=== PATIENT | female | born 1985 | race Caucasian/White ===

== ENCOUNTER 2016-09-06 09:42 | Emergency (ER) | payer OTHER ==
--- NOTE | 2016-09-06 10:12 | EDPHY ---
HPI/HX/ROS/PE/MDM Narrative: CHIEF COMPLAINT: Fever, persistent illness. HISTORY OF PRESENT ILLNESS: This patient is a 30 year old female arriving with her father complaining of fever, generalized achiness, nausea, pelvic pain, and dysuria onset three days ago. She was treated for UTI two weeks ago, given IV antibiotics and morphine. Treated with Keflex initially, then switched to Macrobid, which she completed yesterday. Yesterday morning, Friday, she woke up feeling like she could not breathe, and as though she were underwater, dizziness, headache, chest pain, fatigue, full body aches, and fever of 101-102 degrees Fahrenheit. She states she has taken Tylenol and Advil for fever and headache. She endorses increased difficulty breathing while supine. She describes pain in her right flank like a "knife between my ribs in the back on the left side" with inspiration. She endorses continued dysuria and urinary urgency. She states she has developed a yeast infection as well. She denies vaginal bleeding or history of pelvic inflammatory disease or sexually transmitted infections. [place] and dogs that interact with prairie dogs , and she is concerned regarding plague. She states there have been three reported cases of plague in her area. She has not noted flea or mosquito bites. No chills, palpations, vomiting, lightheadedness. REVIEW OF SYSTEMS: Aside from elements discussed in the HPI, a comprehensive 10-point review of systems was reviewed and is negative. PAST MEDICAL HISTORY: Paragard IUD. History of ovarian cyst. 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 Lives in [place]. Nonsmoker, occasional alcohol use. VITAL SIGNS: Reviewed by me GENERAL: Tearful. Well-developed, well-nourished, resting comfortably in no respiratory distress. HEENT: Atraumatic. Eyes: No icterus, no injection. Mouth: moist mucous membranes. No erythema or lesions. Neck: supple with no adenopathy. Supple. No meningismus. LUNGS: Clear to auscultation bilaterally, no wheezes, rhonchi or rales. CARDIAC: Regular rate and rhythm, no rubs, murmurs or gallops. ABDOMEN: Soft, mild tenderness the lower abdominal quadrants bilaterally. Nondistended, bowel sounds normal. BACK: Left posterior lower ribs painful with inspiration. No CVA tenderness. EXTREMITIES: No trauma. No edema. Range of motion is normal throughout. NEURO: Alert and oriented, grossly nonfocal. SKIN: Warm and dry, no rash. PSYCHIATRIC: Normal mentation, no agitation. Portions of this note were transcribed by a medical associate. I personally performed a history, physical exam, medical decision making, and confirmed accuracy of information the transcribed note. ED Course: This patient is a 30 year old female presenting with three day history fever, generalized achiness, nausea, pelvic pain, and dysuria. Plan for labs including CBC, BMP, liver, lipase, BHCG, UA, PTPTT, D-Dimer, mono screen, respiratory pathogen PCR. Plan for imaging including pelvic US, CTA, chest x-ray. Plan to administer 1000mg PO Acetaminophen, 1L IV NS, 25mg IV Benadryl, 4mg IV Zofran, 1mg IV Dilaudid for symptom relief. UA unremarkable. WBC 13. D-dimer slightly elevated. Chest x-ray shows possible bronchitis. CTA negative for PE. Pelvic US unremarkable, no acute processes noted. 12:[address] Worrell, infectious disease specialist. Dr. Worrell will come to consult. Dr. Worrell at bedside. Patient would like to be discharged home as she has two weddings to attend this weekend. Her father is a physician and is comfortable monitoring her condition. Strict return precautions discussed. Prescriptions for doxycycline and Diflucan given. Contact information for ED and Dr. Worrell given in case of further concerns. MDM: This is a 30 year female who had a urinary tract infection approximately 2 weeks ago. She had treatment with 2 antibiotics and seemed to be somewhat improved. However 3 days ago the patient again developed significant fever, ongoing dysuria, flank pain, back pain, pelvic pain, cough, shortness of breath. There is some concern regarding a zoonotic infection. Evaluation emergency department has been largely unremarkable. Patient does not meet criteria for severe sepsis. Chest x-ray is negative for any pneumonia. CT scan is negative for any pulmonary embolism. Pelvic ultrasound demonstrates no tubo-ovarian abscess or follopian tube abnormalities. Patient was seen by infectious disease. Respiratory panel is negative. Patient will be placed on doxycycline as treatment for potential plague. Titers for EBV were also sent. Differential diagnosis for fever in adults was considered including but not limited to pneumonia, urinary tract infection, viral syndrome, and influenza. - Data Points Imaging Results: Chest x-ray: Impression: Mild bronchitis. No other findings for acute cardiopulmonary abnormality. Dictated By: Ludwin Madera MD Chest CT for pulmonary embolism: Impression: 1. No pulmonary embolism. Clear lungs. 2. Results are called to Dr. Correa, at 12:33 PM Dictated By: Mariajose Richmond MD Pelvic ultrasound: Impression: 2 cm simple-appearing cyst in the left ovary which collapses by the transvaginal examination. IUD has good placement in the endometrial cavity. Otherwise normal pelvic ultrasound. Results called to Dr. Juanita Correa. Laboratory Results: Laboratory Results 09/06/16 10:35 09/06/16 10:35 Medications Given: Discontinued Medications Acetaminophen (Tylenol) 1,000 mg PO EDNOW ONE Stop: 09/06/16 11:49 Last Admin: 09/06/16 11:49 Dose: 1,000 mg Albuterol (Proventil Neb) 3 ml IH EDNOW ONE Stop: 09/06/16 13:41 Last Admin: 09/06/16 13:57 Dose: 3 ml Diphenhydramine HCl (Benadryl Injection) 25 mg IVP EDNOW ONE Stop: 09/06/16 11:49 Last Admin: 09/06/16 11:49 Dose: 25 mg Doxycycline Hyclate (Doxycycline Hyclate) 100 mg PO EDNOW ONE PRN Reason: Protocol Stop: 09/06/16 13:41 Last Admin: 09/06/16 13:57 Dose: 100 mg Hydromorphone HCl (Dilaudid) 1 mg IVP EDNOW ONE Stop: 09/06/16 12:08 Last Admin: 09/06/16 12:29 Dose: 1 mg Sodium Chloride (Ns) 1,000 mls @ 0 mls/hr IV ONCE ONE; Wide Open PRN Reason: Protocol Stop: 09/06/16 10:36 Last Admin: 09/06/16 10:56 Dose: 1,000 mls Sodium Chloride (Ns) 1,000 mls @ 0 mls/hr IV ONCE ONE; Wide Open PRN Reason: Protocol Stop: 09/06/16 12:07 Last Admin: 09/06/16 12:30 Dose: 1,000 mls Ketorolac Tromethamine (Toradol) 15 mg IVP ONCE ONE Stop: 09/06/16 10:36 Last Admin: 09/06/16 10:55 Dose: 15 mg Ondansetron HCl (Zofran) 4 mg IVP EDNOW ONE Stop: 09/06/16 10:36 Last Admin: 09/06/16 10:56 Dose: 4 mg Microbiology Results: MICROBIOLOGY 09/06/16 11:11 Blood Blood Culture - Final 09/06/16 10:35 Blood Blood Culture - Final General Time Seen by Provider: 09/06/16 09:50 Initial Vital Signs: Initial Vital Signs Temperature (C) 38.2 C 09/06/16 09:43 Heart Rate 90 09/06/16 09:43 Respiratory Rate 18 09/06/16 09:43 Blood Pressure 113/81 H 09/06/16 09:43 O2 Sat (%) 94 09/06/16 09:43 O2 Delivery Mode Room Air O2 (L/minute) 2 Allergies/Adverse Reactions: No Known Allergies Allergy (Unverified 09/06/16 09:46) Home Medications: Medication Instructions Recorded Albuterol Hfa Anes Only [Proair 2 puffs IH QID #1 mdi 09/06/16 Hfa Icu (*)] Doxycycline Hyclate 100 mg PO BID #14 tablet 09/06/16 Fluconazole [Diflucan] 200 mg PO ONCE #2 tablet 09/06/16 Departure - Departure Disposition: Home, Routine, Self-Care Clinical Impression: Fever Qualifiers: Fever type: unspecified Qualified Code(s): R50.9 - Fever, unspecified Condition: Good Instructions: Fever in Adults (ED) Additional Instructions: Please take antibiotic as directed. Doxycycline 100 mg by mouth 2 times a day for a week. Continue to take Tylenol and ibuprofen to control fever as well as body aches. Pediatric Fever & Pain Control: For fever/pain control we recommend: Acetaminophen (Tylenol) 1000 mg every 4 to 6 hours as needed Ibuprofen (Advil, Motrin) 600 mg every 6 to 8 hours as needed. *Acetaminophen and Ibuprofen may be given in alternating doses or at the same time for high fever. (NOTE TIME DIFFERENCES) NEVER GIVE ASPIRIN TO AN INFANT OR CHILD. You may obtain results of the pending cultures by calling the emergency department. [phone] Worrell over the weekend as needed. Cell phone is [phone] Please drink plenty of fluid. Please take the fluconazole to treat the yeast infection after finishing your antibiotics. Referrals: [facility] [Other] - As per Instructions Yessy Worrell MD [Medical Doctor] - As per Instructions Prescriptions: Albuterol Hfa Anes Only [Proair Hfa Icu (*)] 2 puffs IH QID #1 mdi Doxycycline Hyclate 100 mg PO BID #14 tablet Fluconazole [Diflucan] 200 mg PO ONCE #2 tablet Report Scribed for: Juanita Correa Report Scribed by: Susie Naidu Date of Report: 09/06/16 Time of Report: 10:13
[2016-09-06] MEDS ORDERED: NS 1,000 ML IV ONE ×2 (10:35→12:06)
[2016-09-06] MEDS ORDERED: ONDANSETRON 4 MG/2 ML VIAL IVP ONE (10:35)
[2016-09-06] MEDS ORDERED: KETOROLAC 15 MG/1 ML SDV IVP ONE (10:35)
[2016-09-06] MEDS ORDERED: ACETAMINOPHEN 500 MG TAB ONE (10:37)
[2016-09-06 10:46] LABS: % IMMATURE GRANULYOCYTES 0.4 % (0.0-1.1); ABSOLUTE IMMATURE GRANULOCYTES 0.06 10^3/uL (0.00-0.10); ADD DIFF? NO; ADD MORPH? NO; ADD SCAN? NO; ATYPICAL LYMPHOCYTE FLAG 0 (0-99); FRAGMENT RBC FLAG 0 (0-99); HEMATOCRIT 43.5 % (38.0-47.0); HEMOGLOBIN 14.8 g/dL (12.6-16.3); LEFT SHIFT FLG 10 (0-99); LIPEMIA HEMOLYSIS FLAG 90 (0-99); MEAN CELL HEMOGLOBIN 32.5 pg (27.9-34.1); MEAN CELL VOLUME 95.6 fL (81.5-99.8); MEAN PLATELET VOLUME 10.6 fL (8.7-11.7); PLATELET CLUMPS FLAG 10 (0-99); PLATELET COUNT 178 10^3/uL (150-400); RED BLOOD CELL COUNT 4.55 10^6/uL (4.18-5.33); RED CELL DISTRIBUTION WIDTH 12.8 % (11.5-15.2)
[2016-09-06 10:49] LABS: COLOR PALE YELLOW; LEUKOCYTE ESTERASE,URINE NEGATIVE (NEGATIVE); NITRITE,URINE NEGATIVE (NEGATIVE)
[2016-09-06] MEDS ORDERED: diphenhydrAMINE 50 MG CAP PO ONE (10:49)
[2016-09-06 11:01] LABS: MUCUS TRACE /lpf (NONE-1+)
[2016-09-06 11:12] LABS: ALANINE AMINOTRANSFERASE 22 IU/L (9-52); ALBUMIN 4.5 g/dL (3.5-5.0); ALKALINE PHOSPHATASE 68 IU/L (38-126); ANION GAP 14 mEq/L (8-16); ASPARTATE AMINOTRANSFERASE 21 IU/L (14-46); BILIRUBIN,TOTAL 0.9 mg/dL (0.1-1.4); BILIRUBIN-CONJUGATED 0.2 mg/dL (0.0-0.5); BILIRUBIN-UNCONJUGATED 0.7 mg/dL (0.0-1.1); CALCIUM 9.8 mg/dL (8.5-10.4); CARBON DIOXIDE 22 mEq/l (22-31); CHLORIDE 108 mEq/L (97-110); CREATININE 0.7 mg/dL (0.6-1.0); GLOMERULAR FILTRATION RATE > 60; GLUCOSE 79 mg/dL (70-100); POTASSIUM 4.3 mEq/L (3.5-5.2); SODIUM 144 mEq/L (134-144); TOTAL PROTEIN 7.5 g/dL (6.3-8.2)
[2016-09-06 11:32] LABS: INR 1.01 (0.83-1.16); PROTIME(PATIENT) 13.2 SEC (12.0-15.0)
[2016-09-06 11:33] LABS: APTT 27.2 SEC (23.0-38.0)
[2016-09-06] MEDS ORDERED: ACETAMINOPHEN 500 MG TAB PO ONE (11:48)
[2016-09-06] MEDS ORDERED: IOPAMIDOL (ISOVUE 370) 100 ML BTL IV ONE (12:00)
[2016-09-06] MEDS ORDERED: HYDROmorphONE/DILAUDID 1 MG/ML SYR IVP ONE (12:07)
[2016-09-06] MEDS ORDERED: DOXYCYCLINE HYCLATE 100 MG CAP/TAB PO ONE (13:40)
[2016-09-06] MEDS ORDERED: ALBUTEROL 3 ML DEYVIAL IH ONE (13:40)
[2016-09-06 14:15] VITALS: BP 114/76; PULSE 67; RESP 14; TEMP 98.7; O2SAT 94
--- NOTE | 2016-09-06 14:47 | GCON ---
[f rep st] CONSULTATION INFECTIOUS DISEASE CONSULTATION DATE OF CONSULTATION: 09/06/2016 REFERRING PHYSICIAN: Juanita Correa MD REASON FOR CONSULTATION: Fever. HISTORY OF PRESENT ILLNESS: A 30-year-old healthy woman who presents to the emergency room with 2-3 days of persistent fever to 102, malaise and body aches. In addition, she felt a prominent headache and muscle pain. This morning, she felt she had a temperature to 102 again and felt short of breath. Therefore, presented to the emergency room for further evaluation. Recently, the patient had dysuria several weeks ago. She was initially given Keflex, but converted to Macrobid approximately 1 week ago, finishing her antibiotic yesterday. She also endorses lightheadedness with standing. She also has left-sided chest pain in the lower left flank. She has some mild urgency, but generally urinary symptoms have completely resolved. No sore throat. She has some left eye discharge intermittently. No rash. She denies any specific ill contacts, but interestingly she is currently living in [place] where there are 3 reported cases of plague, and she [place] in [place] more [place] area where there are 3 dogs who regularly kill prairie dogs. The dogs are not sick. They have mice in the home. She also is very active, hiking extensively , and has also had significant contact with fresh water [place] and hot springs in the area. PAST SURGICAL HISTORY: Nasal septal reconstruction and Paragard IUD. 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 Nonsmoker. Occasional alcohol. She is partnered/she has a male partner whom she has not seen in 2 weeks. They have been together for 2-1/2 years. They do not use condoms. Her last international travel was [place] in June 2016. PAST MEDICAL HISTORY: She denies any history of STDs. Denies specific witnessed flea, tick or mosquito bites. FAMILY HISTORY: Reviewed and noncontributory. ALLERGIES: NKDA. MEDICATIONS: Finished Macrobid the day before yesterday. REVIEW OF SYSTEMS: As per HPI. PHYSICAL EXAMINATION: VITAL SIGNS: Blood pressure 113/81, heart rate 90 ( baseline heart rate in the 40s), respiratory rate 18, temperature 38.2. GENERAL : This is a young woman lying flat in bed, in no respiratory distress but looks uncomfortable. HEENT: Pupils are reactive bilaterally. No scleral icterus. No conjunctival injection. No discharge. Mouth showed moist mucous membranes. No tonsillar swelling. No erythema. No exudates. CHEST: Clear to auscultation bilaterally, without wheezes. CARDIOVASCULAR: Regular rate. No murmur. ABDOMEN: She had diffuse discomfort to palpation. No hepatosplenomegaly. Bowel sounds are present. BACK: No CVA tenderness. EXTREMITIES: No clubbing, cyanosis, or edema. NEUROLOGIC: She is alert and oriented x4, with normal motor. Able to ambulate without difficulty. SKIN: Without rash. LABORATORY: White count 13.3, hematocrit 43, platelets 178, 73% neutrophils, 12 % lymphocytes, 8% monocytes. Creatinine 0.7. AST 21, ALT 22. Beta HCG is negative. Urinalysis is negative. Blood cultures were collected and are pending. A nasal respiratory panel was negative. IMAGING: The patient underwent a CT chest with contrast to evaluate for PE, which was negative and no focal infiltrate was noted. She also had a pelvic and renal ultrasound, which showed some simple appearing cysts in her left ovary and IUD in good place. Otherwise normal. ASSESSMENT AND PLAN: This is a 30-year-old woman who is normally healthy, who presents with febrile illness with associated severe body aches, headaches, nasal congestion and some shortness of breath, without evidence of pneumonia or pulmonary embolism on exam. Further data demonstrates a neutrophilic leukocytosis, normal renal and liver function tests. Respiratory panel is negative. Could also consider primary EBV or CMV, but also with patient's exposure history could consider Yersinia pestis, Francisella tularensis, or leptospirosis. Due to patient's illness and potential zoonotic contacts, would lean toward empiric therapy while awaiting further data, such as blood cultures. Would recommend doxycycline 100 mg and follow up on lab tests. The differential diagnosis and planned treatment was discussed with the patient , her father and ER physician. Time was 65 minutes. Greater than 50% of the time was spent with education and counseling, discussion of differential diagnosis and planned treatment. The patient is to follow up as needed. Family was provided my contact information. Thank you for this consultation. Addendum: Follow-up phone call on 09/10/2016. Patient feels significantly better. Fever resolved with in 24 hours of visit in the emergency room. She still feels some malaise but improved. Reviewed labs which included negative blood cultures to date. EBV serologies are indeterminate for acute infection. CMV serologies were negative. Patient perception that antibiotics did provide significant improvement, will add on [place]mia titers. If positive would extend length of therapy of doxycycline. /[id number]/MODL MTDD
[2016-09-09 09:29] LABS: ANTI EBNA Positive (Negative); ANTI VCA/IgG Positive (Negative); ANTI VCA/IgM Positive (Negative)
[2016-09-09 13:57] LABS: CHLAMYDIA AMPLIFICATION GENPRB NEGATIVE (NEGATIVE)
== END 2016-09-06 14:13 | disposition home or self-care (01) ==
DX: R50.9 Fever, unspecified (principal); R42 Dizziness and giddiness
CPT/HCPCS: 86644-90; 86645-90; 86664-90; 86665-90; 86668-90; 96374; J1170; J1200; J1885; J2405; Q9967

== ENCOUNTER 2017-05-06 14:00 | Inpatient (IN) | payer OTHER ==
[2017-05-06] MEDS ORDERED: ONDANSETRON DISINTEGRATING 4 MG TAB ONE (14:18)
[2017-05-06] MEDS ORDERED: ONDANSETRON DISINTEGRATING 4 MG TAB PO ONE ×2 (14:19→14:28)
--- NOTE | 2017-05-06 14:23 | EDPHY ---
H & P Time Seen by Provider: 05/06/17 14:04 HPI/ROS: HPI Back injury. 31-year-old female by ambulance from [facility]. 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 She reports that Friday morning at 9:00 a.m. She was pushing a toboggan that was unloaded in front of a chair lift chair. While pushing this up a slight hill the chair from the chair left hit her from behind twisting her back awkwardly and knocking her to the ground. She has a previous history of an L4-L5 disc herniation. She complained of intense lower back pain to this region right after the event. She was taken to the emergency department in [place]. She is the daughter of our trauma surgeon Dr. Dakota Morales. She MRIs in the emergency department there. She was treated with narcotics, Toradol, IV steroids as well as a localized cortisone injection. Dr. Morales has spoken with Dr. Jermaine Pool of the spinal service. She was transferred here for surgical management of an L4/L5 disc herniation. MRI of the LS spine obtained at the [place] emergency department is significant for a large central/slightly rightward eccentric extrusion of L4-L5 causing marked compression of the thecal sac impingement on the proximal descending right L5 nerve route. ROS: Constitutional: No fever, no chills. No weakness. Eyes: No discharge. No changes in vision. ENT: No sore throat. No nasal congestion or rhinorrhea. Respiratory: No cough. No shortness of breath. Cardiac: No chest pain, no palpitations. Gastrointestinal: No abdominal pain, no vomiting, no diarrhea. Genitourinary: No hematuria. No dysuria or increased frequency with urination. Musculoskeletal: No back pain. No neck pain. No myalgias or arthralgias. Skin: No rashes. Neurological: No headache. No focal weakness or altered sensation. Past medical history: No significant past medical history. Non hormonal IUD. No medication allergies. Social history: Both parents are alive and well. Father is a former surgeon at [facility] and currently works at our hospital. 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 She is engaged to be . No history of substance abuse. Nonsmoker. Physical Exam: General Appearance: Alert, no distress. This patient is responding to questions appropriately and in full sentences. This patient appears well- hydrated and well-nourished. Head: Normocephalic atraumatic. Face: Facial bones are stable on palpation. Eyes: Pupils equal and round and reactive to light, no pallor or injection. No lid erythema or edema. ENT, Mouth: Mucous membranes moist. Dentition is intact. No malocclusion of the jaw. No tongue lacerations or abrasions. Pharynx is clear. The bilateral nasal canals are clear. No septal hematoma. Respiratory: There are no retractions, lungs are clear to auscultation with good air movement bilaterally. Chest wall is stable to AP and lateral palpation. Cardiovascular: Regular rate and rhythm. No murmur. Gastrointestinal: Abdomen is soft and nontender, no masses, bowel sounds normal. Neurological: Motor sensory function is intact except for a slight sensory deficit S1 dermatomal distribution right foot. Cranial nerves are normal. Cerebellar function intact. Skin: Warm and dry, no rashes. No lacerations, abrasions or contusions. Musculoskeletal: Neck is supple and nontender. The trachea is midline. No midline cervical, thoracic tenderness on palpation. She has midline lumbar tenderness at L4-L5 S1. No bony deformity or step-off noted to this area. No soft tissue edema, ecchymosis, warmth or erythema noted. She does have some vague tenderness over the medial aspect of the right SI joint. No flank tenderness on palpation. Extremities are symmetrical, full range of motion. All joints in the bilateral upper and bilateral lower extremities range without pain or impingement. No tenderness on palpation of the long bones in the bilateral upper and bilateral lower extremities. Psychiatric: No agitation. No depression. Database: EKG: Imaging: Procedures: Emergency department course: Her vital signs were reviewed. Medications and route included 30 mg of IV morphine, 1 mg total of IV Dilaudid given 0.5 mg doses, 5 mg of IV Valium given over a period of 4 hr during transport time. She also received Toradol and IV steroids yesterday in addition to narcotics for treatment at [facility]. 2:[address] Jermaine Pool. He is currently at the patient's bedside. Plan is to take the patient to the OR tomorrow morning at 7:15 a.m.. Patient is asking for pain medication. She remains quite sedated from the narcotic she was given EN route. IV Toradol will be given at Dr. Pool's discretion. Her neurologic condition has remained unchanged throughout her emergency department course. I spoke with her father Dakota Morales regarding her emergency department care as well as plan of management. He has been well briefed by myself and Dr. Pool. All of his questions were answered. The patient was admitted under the care of Dr. Pool in stable condition. Differential Diagnosis: The differential diagnosis on this patient includes but is not limited to L4/5 intervertebral disc herniation, right-sided sacroiliac strain. Traumatic brain injury, cervical spine injury, other significant traumatic injury unlikely. This represents a partial list of diagnoses considered. These considerations are based on history, physical exam, past history, reassessment and diagnostic testing. Smoking Status: Never smoked Constitutional: Initial Vital Signs Temperature (C) 36.7 C 05/06/17 14:23 Heart Rate 57 L 05/06/17 14:23 Respiratory Rate 18 05/06/17 14:23 Blood Pressure 113/75 05/06/17 14:23 O2 Sat (%) 97 05/06/17 14:23 O2 Delivery Mode Nasal Cannula O2 (L/minute) 97 Allergies/Adverse Reactions: No Known Allergies Allergy (Unverified 09/06/16 09:46) Home Medications: Medication Instructions Recorded Herbals/Supplements -Info Only 1 ea PO DAILY 05/06/17 Acetaminophen [Tylenol ES 500 mg 1,000 mg PO Q8HRS PRN tab 05/08/17 (*)] Benzocaine/Menthol 15/4 [Cepacol 1 ea PO PRN PRN lozenge 05/08/17 Lozenge] Gabapentin [Neurontin 300 MG (*)] 300 mg PO Q8HRS #90 cap 05/08/17 HYDROmorphone HCL [Dilaudid 2 mg 2 mg PO Q4HRS PRN tab 05/08/17 (*)] Methocarbamol [Robaxin 750 mg (*)] 750 mg PO QID PRN tab 05/08/17 Sennosides/Docusate Sodium 1 - 2 tab PO BID #30 tab 05/08/17 [Senokot-S] oxyCODONE IR [Oxycodone Ir (*)] 5 - 10 mg PO Q4HRS PRN tab 05/08/17 Medical Decision Making - Data Points Medications Given: Acetaminophen (Tylenol) 1,000 mg PO Q8HRS PRN PRN Reason: Pain, Mild/Fever, Can Take PO Stop: 11/02/17 16:49 Last Admin: 05/08/17 04:48 Dose: 1,000 mg Famotidine (Pepcid) 20 mg PO BID TEE Stop: 11/03/17 08:59 Last Admin: 05/08/17 09:15 Dose: 20 mg Gabapentin (Neurontin) 300 mg PO Q8HRS TEE Stop: 11/03/17 13:59 Last Admin: 05/08/17 05:35 Dose: 300 mg Hydromorphone HCl (Dilaudid Clay Maker) 0 mg IV PRN PRN; Protocol PRN Reason: Pain, Severe Unable to Take PO Stop: 05/16/17 16:45 Last Admin: 05/07/17 05:39 Dose: 6 mg Methocarbamol (Robaxin) 750 mg PO QID PRN PRN Reason: Spasms Stop: 11/03/17 07:12 Last Admin: 05/08/17 04:41 Dose: 750 mg Ondansetron HCl (Zofran) 4 mg IVP Q4HRS PRN PRN Reason: Nausea/Vomiting, Can't Take PO Stop: 11/02/17 16:45 Last Admin: 05/06/17 16:58 Dose: 4 mg Ondansetron HCl (Zofran Odt) 4 mg PO Q4HRS PRN PRN Reason: Nausea/Vomiting, Use 1st Stop: 11/02/17 16:45 Last Admin: 05/07/17 14:05 Dose: 4 mg Oxycodone HCl (Oxycodone Ir) 5 - 10 mg PO Q4HRS PRN PRN Reason: Pain, Severe Able to Take PO Stop: 05/17/17 07:12 Last Admin: 05/08/17 09:14 Dose: 5 mg Senna/Docusate Sodium (Senokot-S) 1 - 2 tab PO BID TEE PRN Reason: Protocol Stop: 11/03/17 08:59 Last Admin: 05/08/17 09:14 Dose: 2 tab Discontinued Medications Bacitracin (Bacitracin Syringe) Confirm Administered Dose 100,000 units IRR .STK -MED ONE Stop: 05/07/17 06:47 Last Admin: 05/07/17 08:21 Dose: 100,000 units Bupivacaine HCl (Sensorcaine 0.25% Sdv) Confirm Administered Dose 60 ml .ROUTE .STK-MED ONE Stop: 05/07/17 06:46 Last Admin: 05/07/17 08:21 Dose: 60 ml Cefazolin Sodium (Ancef) Confirm Administered Dose 2 gm .ROUTE .STK-MED ONE Stop: 05/07/17 08:38 Last Admin: 05/07/17 07:45 Dose: 2 gm Chlorhexidine Gluconate (Hibiclens) Confirm Administered Dose 1 btl TP .STK-MED ONE Stop: 05/07/17 06:46 Last Admin: 05/07/17 08:23 Dose: 1 btl Diazepam (Valium) 2.5 - 5 mg IVP Q5M PRN PRN Reason: PACU, Muscle Spasms Stop: 05/07/17 09:29 Last Admin: 05/07/17 10:38 Dose: 2.5 mg Epinephrine HCl (Epinephrine) Confirm Administered Dose 1 mg .ROUTE .STK-MED ONE Stop: 05/07/17 06:47 Last Admin: 05/07/17 08:23 Dose: 0.3 mg Fentanyl (Sublimaze) 25 - 100 mcg IVP Q5M PRN PRN Reason: PACU, IMMEDIATE Pain control Stop: 05/07/17 09:27 Last Admin: 05/07/17 10:07 Dose: 50 mcg Hydromorphone HCl (Dilaudid Clay Maker) 6 mg IV PRN PRN; Protocol PRN Reason: Pain, Severe Unable To Take Po Stop: 05/16/17 15:43 Last Admin: 05/06/17 16:45 Dose: 6 mg Hydromorphone HCl (Dilaudid) 1 mg IVP ONCE ONE Stop: 05/06/17 15:31 Last Admin: 05/06/17 17:07 Dose: 1 mg Sodium Chloride (Ns) 1,000 mls @ 100 mls/hr IV CONT TEE Stop: 11/02/17 16:45 Last Admin: 05/07/17 02:01 Dose: 1,000 mls Cefazolin Sodium (Cefazolin Syringe) 2 gm in 20 mls @ 200 mls/hr IVP ONCALL ONE PRN Reason: Protocol Stop: 05/06/17 17:04 Last Admin: 05/06/17 18:28 Dose: Not Given Dexmedetomidine HCl 400 mcg/ (Sodium Chloride) 104 mls @ 0 mls/hr IV CONT TEE; Titrate PRN Reason: Protocol Stop: 11/02/17 16:59 Last Admin: 05/07/17 00:18 Dose: 104 mls Cefazolin Sodium (Cefazolin Syringe) 2 gm in 20 mls @ 200 mls/hr IVP ONCALL ONE PRN Reason: Protocol Stop: 05/07/17 07:05 Last Admin: 05/07/17 07:45 Dose: 20 mls Cefazolin Sodium (Cefazolin Syringe) 2 gm in 20 mls @ 200 mls/hr IVP Q8H TEE Stop: 05/08/17 00:05 Last Admin: 05/08/17 00:17 Dose: 20 mls Ketorolac Tromethamine (Toradol) 30 mg IVP EDNOW ONE Stop: 05/06/17 15:05 Last Admin: 05/06/17 15:09 Dose: 30 mg Ketorolac Tromethamine (Toradol) 30 mg IVP ONCE ONE Stop: 05/07/17 10:31 Last Admin: 05/07/17 10:34 Dose: 30 mg Methylprednisolone Acetate (Depo-Medrol) Confirm Administered Dose 40 mg .ROUTE .STK-MED ONE Stop: 05/07/17 06:46 Last Admin: 05/07/17 09:08 Dose: 40 mg Morphine Sulfate (Morphine) 2 - 4 mg IVP .Q10 PRN PRN Reason: PAIN SEVERE UNABLE TO TAKE PO Stop: 05/07/17 11:31 Last Admin: 05/07/17 10:25 Dose: 2 mg Ondansetron HCl (Zofran Odt) 4 mg PO EDNOW ONE Stop: 05/06/17 14:20 Last Admin: 05/06/17 14:27 Dose: 4 mg Ondansetron HCl (Zofran Odt) 4 mg PO EDNOW ONE Stop: 05/06/17 14:29 Last Admin: 05/06/17 14:28 Dose: 4 mg Ondansetron HCl (Zofran) 4 mg IVP ONCE ONE Stop: 05/06/17 17:07 Last Admin: 05/06/17 17:07 Dose: 4 mg Thrombin (Thrombin-Jmi) Confirm Administered Dose 5,000 unit TP .STK-MED ONE Stop: 05/07/17 06:46 Last Admin: 05/07/17 08:24 Dose: 5,000 unit Departure - Departure Disposition: [facility] Inpatient Acute Clinical Impression: Herniated nucleus pulposus, L4-5 right Condition: Good
[2017-05-06] MEDS ORDERED: KETOROLAC 15 MG/1 ML SDV ONE (15:03)
[2017-05-06] MEDS ORDERED: KETOROLAC 30 MG/1 ML SDV IVP ONE (15:04)
[2017-05-06] MEDS ORDERED: ONDANSETRON 4 MG/2 ML VIAL ONE ×2 (15:18→16:45)
[2017-05-06] MEDS ORDERED: HYDROmorphONE/DILAUDID 2 MG/ML INJ ONE (15:22)
[2017-05-06] MEDS ORDERED: HYDROmorphONE/DILAUDID 1 MG/ML INJ IVP ONE (15:30)
[2017-05-06 15:43] LABS: PLATELET COUNT 151 10^3/uL (150-400)
[2017-05-06] MEDS ORDERED: HYDROmorphONE/DILAUDID 6 MG/30 ML PCA IV PRN (15:44)
[2017-05-06] MEDS ORDERED: NALOXONE HCL 0.4 MG/ML INJ IVP PRN ×2 (15:44→16:46)
[2017-05-06] MEDS ORDERED: ONDANSETRON DISINTEGRATING 4 MG TAB PO PRN (16:46)
[2017-05-06] MEDS ORDERED: ONDANSETRON 4 MG/2 ML VIAL IVP PRN (16:46)
[2017-05-06] MEDS ORDERED: ACETAMINOPHEN 325 MG TAB PO PRN (16:46)
[2017-05-06] MEDS ORDERED: HYDROmorphONE/DILAUDID 2 MG TAB PO PRN (16:46)
[2017-05-06] MEDS: NS 1,000 ML IV SCH (16:58)
[2017-05-06] MEDS ORDERED: ceFAZolin 2 GM/SWFI 2 GM/20 ML SYR IVP ONE (16:59)
[2017-05-06] MEDS ORDERED: DEXMEDETOMIDINE HCL 400 MCG in NS 100 ML IV SCH (17:00)
[2017-05-06] MEDS: HYDROmorphONE/DILAUDID 6 MG/30 ML PCA IV PRN (17:01)
--- NOTE | 2017-05-06 17:05 | NEUSURGPN ---
Assessment/Plan: Assessment: 31 yr old with large Right L4-5 HNP Plan: -Please see full dictated HP when available -Patient with large right L4-5 hnp, plan for OR in am with Dr Pool for Right L4-5 MANDEEP -Pain management: BRUSH CLEANER ordered, patient currently requiring IV pain medications for pain control. Precedex ordered if needed -Will keep in SDU with continuous pulse oximetry -NPO at midnight -Please call neurosurgery with any questions/concerns Subjective: Right leg pain Objective: AxO x3 PERRLA 5/5 BUE, BLE Positive straight leg raise-Right Neuro Check Frequency: per routine Urinary Catheter in Place: No - Physician Discussed Patient with : Yrn Patient Seen by : Yrn Neurosurgery Physical Exam - Vitals, I&O, Labs I and O 05/05/17 05/06/17 05/07/17 05:59 05:59 05:59 Weight 70 kg Vital Signs Temp Pulse Resp BP Pulse Ox 36.7 C 51 L 17 113/62 97 05/06/17 14:23 05/06/17 16:56 05/06/17 16:56 05/06/17 16:56 05/06/17 16:56 Laboratory Results 05/06/17 15:30 05/06/17 15:30 ICD10 Worksheet Patient Problems: Problems Problem Status Onset Herniated nucleus pulposus, L4-5 right Acute Fever Acute
[2017-05-06] MEDS ORDERED: ONDANSETRON 4 MG/2 ML VIAL IVP ONE (17:06)
--- NOTE | 2017-05-06 17:25 | GHP ---
[f rep st] HISTORY AND PHYSICAL DATE OF ADMISSION: 05/06/2017 CHIEF COMPLAINT: Right leg pain. HISTORY OF PRESENT ILLNESS: Patient is a 31-year-old female, presented to the emergency room via ambulance for severe right leg pain. Patient has a history of low back issues starting at the age of 16 in which she started to experience some bulging disks. Her symptoms have progressed over the years and again in the fall of 2016. Patient underwent an MRI of the lumbar spine in the fall of 2016, which demonstrated disk bulging at L4-5. Two days ago, the patient had a sudden increase in the severity of her symptoms and she underwent a MRI lumbar spine which demonstrated a large L4-5 disc herniation. She describes her pain as low back pain that radiates down the posterolateral aspect of her right leg. She denies any bowel or bladder incontinence and denies any weakness in her lower extremities. Patient does notice an increase in pain when trying to use the restroom. Patient underwent an injection at L4-5 up near [place] where she lives yesterday. Unfortunately, injection may have increased her symptoms and she was brought to the emergency room today via ambulance today. Patient is requiring high doses of IV medications for pain management and is here for evaluation. REVIEW OF SYSTEMS: A 10-point review of systems was performed and negative aside from what was mentioned in the HPI. MEDICAL HISTORY: 1. Bipolar type 2. 2. Patient reportedly had a bleeding fissure last week. MEDICATIONS: None. Patient has an intrauterine device. SOCIAL HISTORY: Patient rarely and lightly consumes alcohol. She uses cannabis occasionally. She denies any use of nicotine products or illicit drugs. FAMILY HISTORY: Mother has a history of cervical spine issues. ALLERGIES: No known drug allergies. LABORATORY RESULTS: White blood cell count 12.89, hemoglobin 12.6, hematocrit 36.6, platelets 151. Sodium 138, potassium 4.3, BUN 7, creatinine 0.6, glucose 94. DIAGNOSTIC IMAGING: MRI of the lumbar spine performed without contrast from an outside facility was obtained and loaded into our [facility] PACS system. There is no radiologist's report available. The MRI does demonstrate a very large right-sided disk protrusion at L4-5. PHYSICAL EXAMINATION: VITAL SIGNS: 120/71, heart rate 49, respiratory rate 18 , oxygen saturations 98% on 2 L nasal cannula, temperature 36.7 degrees Celsius. HEENT: Head normocephalic and atraumatic. Pupils are equal, round, and reactive to light. EOMI is intact. Full visual romo by confrontation. RESPIRATORY: Deferred. CARDIAC: Deferred. ABDOMEN: Soft, nontender. GENITOURINARY: Deferred. RECTAL: Deferred. NEUROLOGIC: Awake, alert, oriented to name, place, location, date, time, and situation. Her memory is intact to immediate past and current events. Speech: No aphasia or dysphonia. Cranial nerves 2-12 are grossly intact. Motor: Patient has 5/5 strength in all muscle groups in the bilateral upper and lower extremities to include deltoids, biceps, triceps, brachioradialis, wrist flexion, extensors, nitriles lab technician, intrinsic fingers, iliopsoas, quadriceps, hamstrings, plantar flexion, dorsiflexion, EHL testing. Sensation is grossly intact to light touch throughout all dermatomal distributions in the bilateral lower extremities, aside from her right 3rd, 4th, and 5th toes being numb. Patient has a positive straight leg raise on the right. Reflexes: Brachioradialis, knee jerk and ankle jerk are 2+/4. Toes are downgoing bilaterally. Gilberto sign is negative and Babinski is negative. ASSESSMENT AND PLAN: Patient is a 31-year-old female, who was transported by ambulance for excruciating right leg pain today. Patient was seen in the emergency department. An MRI of the lumbar spine was viewed, which shows a very large disk herniation on the right at L4-5. Patient is having difficulty managing the severity of her pain at this time. She was requiring high doses of IV narcotics, including Dilaudid and morphine while she was being transported. We will admit this patient to the step-down unit to observe while she is on these high-dose narcotics. Patient will be n.p.o. tonight at midnight and we will place her on the surgery schedule for tomorrow morning at [address] Pool for a right-sided L4-5 microdiskectomy. Patient is requesting an enema since she has not had a bowel movement since Friday. Patient's father requests that we refrain from enema at this time due to her recent bleeding fissure. Patient was seen and examined by myself and Dr. Pool in the emergency department today, May 06, 2017, at 2:40 p.m. /[id number]/MODL MTDD
[2017-05-07] MEDS: NS 1,000 ML IV SCH (02:01)
[2017-05-07] MEDS: HYDROmorphONE/DILAUDID 6 MG/30 ML PCA IV PRN (05:39)
--- NOTE | 2017-05-07 06:20 | PDHPUP ---
History & Physical Update H&P update statement: This history and physical update is based on an assessment of the patient which was completed after admission or registration (within 24 hours), but prior to the surgery/procedure. H&P update: H&P reviewed & patient examined, no change in patient's condition since H&P completed
[2017-05-07] MEDS ORDERED: CHLORHEXIDINE GLUC HIBICLENS 118 ML BTL TP ONE (06:45)
[2017-05-07] MEDS ORDERED: BUPIVACAINE 0.25% 30 ML SDV ONE (06:45)
[2017-05-07] MEDS ORDERED: DEPO METHYLPREDNISOLONE 40 MG/ML SDV ONE (06:45)
[2017-05-07] MEDS ORDERED: THROMBIN (BOVINE) 5,000 UNIT VIAL TP ONE (06:45)
[2017-05-07] MEDS ORDERED: BACITRACIN 50,000 UNITS/10 ML SYR IRR ONE (06:46)
[2017-05-07] MEDS ORDERED: ceFAZolin 2 GM/SWFI 2 GM/20 ML SYR IVP ONE (07:00)
[2017-05-07] MEDS ORDERED: METHOCARBAMOL 750 MG TAB PO PRN (07:13)
[2017-05-07] MEDS ORDERED: diphenhydrAMINE 25 MG CAP PO PRN (07:13)
[2017-05-07] MEDS ORDERED: BISACODYL 10 MG SUPP PR PRN (07:13)
[2017-05-07] MEDS ORDERED: HYDROmorphone HCL/NS 0.5 MG/ML SYR IVP PRN (07:13)
[2017-05-07] MEDS ORDERED: LACTULOSE 20 GM/30 ML UDCUP PO PRN (07:13)
[2017-05-07] MEDS ORDERED: POLYETHYLENE GLYCOL 3350 17 GM PKT PO PRN (07:13)
[2017-05-07] MEDS ORDERED: MAGNESIUM HYDROXIDE 30 ML UDCUP PO PRN (07:13)
[2017-05-07] MEDS ORDERED: NS W/ 20 KCl/L 1,000 ML IV SCH (07:15)
[2017-05-07] MEDS ORDERED: MIDAZOLAM 2 MG/2 ML VIAL ONE (07:16)
[2017-05-07] MEDS ORDERED: fentaNYL 100 MCG/2 ML INJ ONE ×2 (07:16→09:44)
[2017-05-07] MEDS ORDERED: PROPOFOL/EMULSION 500 MG/50 ML BOTTLE IV ONE (07:31)
--- NOTE | 2017-05-07 08:06 | PDANEPAE ---
ANE Past Medical History - Pulmonary History Hx Oxygen in Use at Home: No Hx Sleep Apnea: No Sleep Apnea Screening Result - Last Documented: Negative - Endocrine History Hx Diabetes: No - Chronic Pain History Chronic Pain: Yes ANE Review of Systems Review of Systems: ANE Patient History - Allergies Allergies/Adverse Reactions: No Known Allergies Allergy (Unverified 09/06/16 09:46) - Home Medications Home Medications: Herbals/Supplements -Info Only 1 ea PO DAILY 05/06/17 [Last Taken Unknown] - NPO status NPO Since - Liquids (Date): 05/07/17 NPO Since - Liquids (Time): 00:00 NPO Since - Solids (Date): 05/06/17 NPO Since - Solids (Time): 21:00 - Smoking Hx Smoking Status: Never smoked ANE Labs/Vital Signs - Labs Result Diagrams: 05/06/17 15:30 05/06/17 15:30 - Vital Signs Blood Pressure: 109/72 Heart Rate: 50 Respiratory Rate: 10 O2 Sat (%): 93 Height: 198.12 cm Weight: 70 kg ANE Physical Exam - Airway Neck exam: FROM Mallampati Score: Class 1 Mouth exam: normal dental/mouth exam - Pulmonary Pulmonary: no respiratory distress, no rales or rhonchi, clear to auscultation - Cardiovascular Cardiovascular: regular rate and rhythym, no murmur, rub, or gallop - ASA Status ASA Status: II ANE Anesthesia Plan Anesthesia Plan: general endotracheal anesthesia
[2017-05-07] MEDS ORDERED: ALBUTEROL 3 ML DEYVIAL IH PRN (08:25)
[2017-05-07] MEDS ORDERED: METOCLOPRAMIDE 10 MG/2 ML VIAL IVP PRN (08:25)
[2017-05-07] MEDS ORDERED: PROMETHAZINE HCL 25 MG/ML INJ IVP PRN (08:25)
[2017-05-07] MEDS ORDERED: ONDANSETRON 4 MG/2 ML VIAL IVP PRN (08:25)
[2017-05-07] MEDS ORDERED: DIAZEPAM 5 MG/ML 1 ML SYR IVP PRN (08:25)
[2017-05-07] MEDS ORDERED: DEXAMETHASONE 4 MG/ML VIAL IVP PRN (08:25)
[2017-05-07] MEDS ORDERED: PROPOFOL 200 MG/20 ML VIAL ONE (08:36)
[2017-05-07] MEDS ORDERED: ONDANSETRON 4 MG/2 ML VIAL ONE (08:37)
[2017-05-07] MEDS ORDERED: ceFAZolin 1 GM VIAL ONE (08:37)
[2017-05-07] MEDS ORDERED: SUGAMMADEX SODIUM 200 MG/2 ML VIAL IVP ONE (08:37)
[2017-05-07] MEDS ORDERED: DEXAMETHASONE 4 MG/ML VIAL ONE (08:37)
[2017-05-07] MEDS ORDERED: RANITIDINE 50 MG/2 ML VIAL ONE (08:37)
[2017-05-07] MEDS ORDERED: ROCURONIUM 50 MG/5 ML VIAL ONE (08:37)
[2017-05-07] MEDS ORDERED: METOCLOPRAMIDE 10 MG/2 ML VIAL ONE (08:37)
[2017-05-07] MEDS ORDERED: LIDOCAINE 2% 5 ML SDV ONE (08:37)
--- NOTE | 2017-05-07 08:48 | PDMN ---
Medical Necessity Medical necessity: M63 back pain, S 810 Lumbar discectomy A-1 day: -INPT for non-elective procedure with DIETETIC ASSISTANT needed for pain relief.
--- NOTE | 2017-05-07 09:23 | ASMTCASEMG ---
Living Arrangements What is your living Answers: With Partner arrangement? Who do you live with? Type Of Residence What kind of residence do Answers: House you live in? Discharge Plan Comments Coordination Status Comments Notes: Patient is a 31yo female who was admitted for a large L4-5 herniated disc. Patient has been in severe pain and is scheduled for surgery today. OT/PT have been ordered. D/C plan TBD. CM will follow. Date Signed: 05/07/2017 09:23 AM Electronically Signed By:Renee Sykes LCSW
[2017-05-07] MEDS ORDERED: HYDROmorphONE/DILAUDID 2 MG/ML INJ ONE (09:44)
[2017-05-07] MEDS: fentaNYL 100 MCG/2 ML INJ IVP PRN ×2 (09:47→10:07)
--- NOTE | 2017-05-07 09:50 | SOAPPROG ---
SOAP Progress Note Assessment/Plan: Post Op Visit: S: awake and alert. Pt with expected LBP, legs feel better O: AFVSS/PERRLA/EOMI no droop CN 2-12 grossly intact +lt touch 5/5 BUE/BLE = except right EHL at 4+/5 CDI A/P: 31 yo female that is s/p right L4/5 MANDEEP -orders in place -call with any questions or concerns -pt seen by Dr Pool as well -pt understands and agrees 05/07/17 09:47 Objective: Vital Signs Temp Pulse Resp BP Pulse Ox 36.9 C 50 L 10 L 109/72 93 05/07/17 06:00 05/07/17 08:06 05/07/17 08:06 05/07/17 08:06 05/07/17 08:06 Laboratory Results 05/06/17 15:30 05/06/17 15:30 05/06/17 05/07/17 05/08/17 05:59 05:59 05:59 Intake Total 1661.5 Output Total 300 Balance 1361.5 ICD10 Worksheet Patient Problems: Problems Problem Status Onset Herniated nucleus pulposus, L4-5 right Acute Fever Acute
[2017-05-07] MEDS ORDERED: KETOROLAC 30 MG/1 ML SDV ONE (10:16)
[2017-05-07] MEDS ORDERED: KETOROLAC 30 MG/1 ML SDV IVP ONE (10:30)
[2017-05-07] MEDS ORDERED: DIAZEPAM 5 MG/ML 1 ML SYR ONE (10:37)
--- NOTE | 2017-05-07 10:47 | POSTANESTH ---
Post Anesthetic Evaluation Cardiovascular Status: Normal, Stable Respiratory Status: Normal, Stable Level of Consciousness/Mental Status: Mildly Sleepy, Arousable Pain Control: Adequate, Prn Tx Ordered Nausea/Vomiting Control: Adequate, Prn Tx Ordered Complications Possibly Related to Anesthesia: None Noted
--- NOTE | 2017-05-07 10:58 | GOP ---
[f rep st] OPERATIVE REPORT DATE OF OPERATION: 05/07/2017 SURGEON: Jazzy Pool MD NEUROSURGEON: Jazzy Pool MD. DENTAL OFFICE ASSISTANT: Rainer De La Cruz PA-C. PREOPERATIVE DIAGNOSIS: Right footdrop; large herniated disk, L4-5; excruciating right L5 radiculopa thy. POSTOPERATIVE DIAGNOSIS: Right footdrop; large herniated disk, L4-5; excruciating right L5 radiculop athy. PROCEDURE PERFORMED: Right L4-5 hemilaminotomy, medial facetectomy with a right L4-5 microdiskectomy (64818), microscope. FINDINGS: ESTIMATED BLOOD LOSS: 25 cc. 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 She fell, t wisting, and had excruciating pain down the low back. Prior to this, she had some low back pain in t he spine but nothing comparable to this issue. She was in excruciating pain and underwent an epidura l steroid injection, and the pain was unrelenting. She came to the emergency department here at [facility], where indeed she was in excruciating pain despite large doses of narcotics, a nd even at very, very high doses of narcotics, her pain was uncontrolled. She also was noted to have a right-sided footdrop. An MRI demonstrated large prolapse of the L4-5 disk, causing severe hannah ivon of the right L5 nerve root, some central stenosis, and even some left lateral recess stenosis. Her pain was virtually all on the right-hand side. I suggested a microdiskectomy. She was admitted from the emergency department to the step-down unit, which is effectively the ICU for pain control. She was placed on Precedex overnight and IV EPIDEMIOLOGY INTERNSHIP. Despite IV constant sedation and close nursing supe rvision, her pain remained excruciating. The only time she had any relief from the pain was when she was literally incoherent from the drugs that we had to give her to alleviate the pain. We moved our surgery schedule around because the pain was unrelenting and because of the right-sided footdrop, an d we suggested surgery early this morning. The risk of recurrent disk herniation, nerve injury, and spinal fluid leak was discussed. Her father had to consent to the procedure because she was not full y consentable due to the large doses of drugs that were required. DESCRIPTION OF PROCEDURE: The patient was taken to the operating room and placed in supine position. General anesthesia was begun. She was flipped prone onto the Shahram frame. Care was taken to pad all points of contact. Her back was sterilely prepped and draped in the usual fashion. A localizing x-ray was taken. We made an 18 mm incision above the L4-5 interspace. The subcutaneous tissue was dissected using Bovie cautery down to the fascia, and a subperiosteal dissection was made down the ri ght L4-5 lamina. Self-retaining retractor was placed. The exposure was a little deeper than we expe cted, and the retractor put a lot of tension on the skin. We enlarged the incision to 25 mm, from 18 mm, and this relaxed it nicely. The operating microscope was introduced. We drilled right L4-5 hem ilaminotomy. Under the scope, we opened the ligamentum flavum, decompressed the lateral aspect of the thecal sac, and worked our way laterally underneath the L4-5 facet joint. Just a trace amount of facet joint had to be removed. The L5 nerve root was identified, and it was extremely irritable. We could not use a 3 mm Kerrison to decompress the root. It simply would not fit between the nerve and the medial asp ect of the 4-5 facet. We therefore took a 2 mm punch and worked our way from the rostral aspect of t he L5 pedicle, up along the facet joint itself just lateral to the nerve, undercutting the facet and removing very small pieces. This was well tolerated by the nerve itself. We then mobilized the nerv e, and underneath the nerve was prolapse of the annulus of the L4-5 disk, and there was actually anot her daughter fragment coming out through the annulus toward the 5 root that had been crushing the 5 r oot against the medial portion of the facet joint. This is the culprit fragment. We did not need to use the blade in the disk itself. We simply took a black hook and punctured the a nulus over this culprit fragment and then delivered a very large subannular fragment. We continued w orking subannularly removing all of the material underneath the prolapsed annulus, and we would squee ze it out like toothpaste with a ball-tip probe, working rostral to caudal and then caudal to rostral in sequential fashion. We got a large amount of free fragment disk. We then entered the preexistin g defect in the L4-5 disk and removed some additional loose fragments. We did not perform a radical microdiskectomy. We then inserted an irrigation down into the L4-5 disk and irrigated it several times, which flushed some additional loose fragments out of the disk space. Thecal sac was now totally relaxed. The L5 n erve root totally relaxed. We placed a little Depo-Medrol over the right L5 nerve root. We then jimi sed the incision in multiple layers using Vicryl sutures. Steri-Strips were applied the s kin. The patient was reversed from anesthesia, extubated, and transferred to recovery room in stable condition. There were no complications. COMPLICATIONS: None. /[id number]/MODL
[2017-05-07] MEDS ORDERED: ceFAZolin 2 GM/DEXTROSE 100 ML IV SCH (14:00)
[2017-05-07] MEDS: GABAPENTIN 300 MG CAP PO SCH ×2 (14:05→21:13)
[2017-05-07] MEDS: SENNOSIDES/DOCUSATE SODIUM TAB PO SCH ×2 (14:13→21:12)
[2017-05-07] MEDS: FAMOTIDINE 20 MG TAB PO SCH ×2 (14:13→21:13)
[2017-05-07] MEDS ORDERED: CEPACOL LOZENGE PO PRN (15:58)
[2017-05-07] MEDS: ceFAZolin 2 GM/SWFI 2 GM/20 ML SYR IVP SCH (16:30)
[2017-05-07] MEDS: ACETAMINOPHEN 500 MG TAB PO PRN (18:46)
[2017-05-07] MEDS: oxyCODONE IR 5 MG TAB PO PRN (21:12)
[2017-05-08] MEDS: ceFAZolin 2 GM/SWFI 2 GM/20 ML SYR IVP SCH (00:17)
[2017-05-08] MEDS: oxyCODONE IR 5 MG TAB PO PRN ×3 (00:18→11:24)
[2017-05-08] MEDS: ACETAMINOPHEN 500 MG TAB PO PRN (04:48)
[2017-05-08] MEDS: GABAPENTIN 300 MG CAP PO SCH (05:35)
--- NOTE | 2017-05-08 07:18 | NEUSURGPN ---
Date of Surgery: 05/07/17 Post Op Day: 1 Assessment/Plan: Assessment: 31 yo female that is s/p right L4/5 MANDEEP POD #1 Plan: -s/p lumbar MANDEEP: doing much better, RLE feels better but has some expected lower back pain -PT/OT ordered -no bending or twisting -orders in place -pain control doing well with pain meds ordered -pt agrees for dc later today -CDI -call with any questions or concerns -pt seen by Dr Pool as well -pt understands and agrees Subjective: Awake and alert. NAD. Pt with expected lower back pain. RLE feels good. No madrid/neck/chest/abd or gu complaints. No f/c/n/v/d. Objective: AFVSS/PERRLA/EOMI no droop CN 2-12 grossly intact +lt touch 5/5 BUE/BLE = except right EHL at 5-/5 CDI Neuro Check Frequency: per routine Urinary Catheter in Place: No - Physician Discussed Patient with DrCaprice: Yrn Patient Seen by : Yrn Neurosurgery Physical Exam - Vitals, I&O, Labs I and O 05/07/17 05/08/17 05/09/17 05:59 05:59 05:59 Intake Total 1661.5 4130 Output Total 300 825 Balance 1361.5 3305 Weight 70 kg 70 kg Intake: Oral (ml) 500 2930 IV Intake (ml) 1200 IV Infused (ml) 1161.5 Dexmedetomidine HCl 400 13 mcg In Ns 100 ml @ Titrate IV CONT TEE Rx#: [id number] HYDROmorphone HCL 6 mg ( 18.5 See Protocol) IV PRN PRN Rx#:[id number] Ns 1,000 ml @ 100 mls/hr 1130 IV CONT TEE Rx#: [id number] Output: Urine (ml) 300 800 Bedside Commode 300 Toilet 300 500 Estimated Blood Loss (ml) 25 Other: Intake Quantity Yes Yes Sufficient Number of Voids Bedside Commode 1 Toilet 2 3 Number of Stools Toilet 1 Vital Signs Temp Pulse Resp BP Pulse Ox 36.8 C 70 18 95/57 L 92 05/08/17 04:00 05/08/17 04:00 05/08/17 04:00 05/08/17 04:00 05/08/17 04:00 Laboratory Results 05/06/17 15:30 05/06/17 15:30 ICD10 Worksheet Patient Problems: Problems Problem Status Onset Herniated nucleus pulposus, L4-5 right Acute Fever Acute
[2017-05-08 08:40] VITALS: BP 93/55; PULSE 57; RESP 16; TEMP 98.6; O2SAT 95
[2017-05-08] MEDS: SENNOSIDES/DOCUSATE SODIUM TAB PO SCH (09:14)
[2017-05-08] MEDS: FAMOTIDINE 20 MG TAB PO SCH (09:15)
--- NOTE | 2017-05-08 11:48 | ASDISCHSUM ---
Discharge Information Plan Status:Home with No Needs Medically Cleared to Leave: Discharge Date:05/08/2017 11:38 AM CM D/C Disposition:Home, Routine, Self-Care ADT D/C Disposition:Home, Routine, Self-Care Projected Discharge Date:05/08/2017 11:38 AM Transportation at D/C: Discharge Delay Reason: Follow-Up Date:05/08/2017 11:38 AM Discharge Slot: Final Diagnosis: Placement Information Patient Contact Information Contact Name:EDILSON Relationship:Father Address: Work Phone: City: [facility] Phone: State/Zip Code: Email: Financial Information Financial Class:Worker's Compensation Primary Plan Desc:[employer] Primary Plan Number:[id number] Secondary Plan Desc:[facility] Secondary Plan Number:[id number] Assessment Information [facility] Initial CM Assessment Living Arrangements What is your living Answers: With Partner arrangement? Who do you live with? Type Of Residence What kind of residence do Answers: House you live in? Discharge Plan Comments Coordination Status Comments Notes: Patient is a 31yo female who was admitted for a large L4-5 herniated disc. Patient has been in severe pain and is scheduled for surgery today. OT/PT have been ordered. D/C plan TBD. CM will follow. Date Signed: 05/07/2017 09:23 AM Electronically Signed By:Renee Sykes LCSW [facility] CM Progress Note CM Note CM Note Notes: Pt s/p lumbar MANDEEP. OT rec home, PT rec outpatient. FC assisted w insurance concerns. Pt medically stable for d/c, no CM d/c needs identified. Date Signed: 05/08/2017 11:47 AM Electronically Signed By:LAURIE Wyatt Intervention Information
[2017-05-10] MEDS ORDERED: ENOXAPARIN 40 MG/0.4 ML SYR SC SCH (09:00)
== END 2017-05-08 11:38 | disposition home or self-care (01) | DRG 520 ==
LOC: F3N 15:15 → F2N 16:39 → F3N 05-07 11:06
PROVIDERS: ADMIT Neurological Surgery; ATTEND Neurological Surgery
PROC: 0ST20ZZ Resection of Lumbar Vertebral Disc, Open Approach (ICD-10-PCS; principal; 2017-05-07 07:30)
PROC: 01NB0ZZ Release Lumbar Nerve, Open Approach (ICD-10-PCS; principal; 2017-05-07 07:30)
DX: S33.141A Dislocation of L4/L5 lumbar vertebra, initial encounter (principal); M54.16 Radiculopathy, lumbar region; M48.061 Spinal stenosis, lumbar region without neurogenic claudication; M51.26 Other intervertebral disc displacement, lumbar region; V98.3XXA Accident to, on or involving ski lift, initial encounter; Y92.838 Other recreation area as the place of occurrence of the external cause; W20.8XXA Other cause of strike by thrown, projected or falling object, initial encounter; Y99.0 Civilian activity done for income or pay; V00.321A Fall from snow-skis, initial encounter
CPT/HCPCS: 97161-GP; 97165-GO; J0171; J0690; J1030; J1100; J1170; J1885; J2250; J2270; J2405; J2704; J2765; J2780; J3010; J3360